=== PATIENT | male | born 1995 | race Caucasian/White ===

== ENCOUNTER 2021-01-31 16:26 | Emergency (ER) | payer BC ==
[~2021-01-31] VITALS: Ht 175.3 cm; Wt 77.2 kg
--- NOTE | 2021-01-31 17:19 | PHYS DOC ---
Past History Past Surgical History: No Surgical History Alcohol Use: None General Adult EDM: Chief Complaint: TOE PROBLEM HPI: HPI: Patient is a 25-year-old male coming in for pain to his right second toe. Patient dropped an approximately 50 pound cardiac on his toe about 1 week ago. Pain has been continuing because he works at [employer] and is constantly on his feet. Review of Systems: Review of Systems: All other systems within normal limits except for as noted in the HPI Allergies: Allergies: Allergies Coded Allergies Type Severity Reaction Last Updated Verified No Known Allergies Allergy Unknown 01/31/21 Yes Physical Exam: PE: Constitutional: Well developed, well nourished, no acute distress, non-toxic appearance. [] HENT: Normocephalic, atraumatic, bilateral external ears normal, nose normal. [] Eyes: PERRLA, conjunctiva normal, no discharge. [] Neck: No rigidity, supple, no stridor. [] Cardiovascular: Regular rate and rhythm, brisk cap refill [] Lungs & Thorax: Non labored symmetric respirations, no tachypnea or respiratory distress [] Abdomen: Soft, nondistended. Skin: Warm, dry, no erythema, no rash. [] Back: Unremarkable Extremities: No deformities, range of motion grossly intact, no lower extremity edema. Tenderness and swelling of distal right second toe. Range of motion intact, no subungual hematoma [] Neurologic: Alert and oriented X 3, no focal deficits noted. [] Psychologic: Affect normal, judgement normal, mood normal. [] Current Patient Data: Vital Signs: Vital Signs Date Time Temp Pulse Resp B/P (MAP) Pulse Ox O2 Delivery O2 Flow Rate FiO2 01/31/21 16:26 98.6 71 16 135/74 (94) 100 Room Air EKG: EKG: [] Radiology/Procedures: Radiology/Procedures: EP interpretation, nondisplaced avulsion fracture of distal phalanx on the right second toe [] Heart Score: C/O Chest Pain: No Risk Factors: Risk Factors: DM, Current or recent (<one month) smoker, HTN, HLP, family history of CAD, obesity. Risk Scores: Score 0 - 3: 2.5% MACE over next 6 weeks - Discharge Home Score 4 - 6: 20.3% MACE over next 6 weeks - Admit for Clinical Observation Score 7 - 10: 72.7% MACE over next 6 weeks - Early Invasive Strategies Course & Med Decision Making: Course & Med Decision Making Pertinent Labs and Imaging studies reviewed. (See chart for details) [] Jacquie Disclaimer: Jacquie Disclaimer: This electronic medical record was generated, in whole or in part, using a voice recognition dictation system. Departure Departure: Impression: Primary Impression: Toe fracture, right Disposition: HOME / SELF CARE / HOMELESS Condition: STABLE Referrals: PCP,NO (PCP) Patient Instructions: Toe Fracture with [facility] HUMERA DENNEY MD Jan 31, 2021 17:19
[2021-01-31 17:38] VITALS: BP 128/72
--- NOTE | 2021-01-31 18:05 | RAD ---
XR RT TOE 2+ VIEWS Clinical indications: Reason: injury TO 2ND DIGIT /pain Findings: Nondisplaced comminuted fracture is seen involving the entire second distal phalanx. No di slocation or lytic process is seen. IMPRESSION: Comminuted fracture of the second distal phalanx. Electronically signed by: Henry Alas MD (01/31/2021 6:03 PM) [id number]
== END 2021-01-31 17:38 | disposition home or self-care (01) ==
LOC: ER 16:26
DX: S92.534A Nondisplaced fracture of distal phalanx of right lesser toe(s), initial encounter for closed fracture (principal); W20.8XXA Other cause of strike by thrown, projected or falling object, initial encounter; Y93.89 Activity, other specified; Y92.89 Other specified places as the place of occurrence of the external cause; Y99.8 Other external cause status
CPT/HCPCS: 73660; 99283